=== PATIENT | female | born 1965 | race Caucasian/White ===

== ENCOUNTER → 2019-12-23 | Outpatient (CLI) | payer OTHER ==
--- NOTE | 2019-12-23 16:37 | RAD ---
Examination: MRI of the right ankle without contrast HISTORY: History of right ankle pain, fracture COMPARISON: None available Technique: Multiplanar, multisequence MR imaging of the right ankle was performed without contrast. FINDINGS: The attachment of the Achilles tendon to the calcaneus and plantar fascia to the inferior aspect of the calcaneus grossly appears intact. Comminuted fracture of the talus diffuse decreased signal in the mid and medial portion of the talus likely avascular necrosis. There is fracture of the anterior lateral aspect of the calcaneus superiorly.. There is diffuse increased intermediate T1 signal identified in the ankle joint with increased T2 signal likely neuropathic joint. There is diffuse trabecular edema identified in the calcaneus, talus, T1 bone likely stress reactive changes. The flexor tendons, anterior extensor compartment tendons, peroneal tendons attachment grossly appears unremarkable. Small amount of fluid identified in the pelvis along the tendon sheath lateral to the calcaneus. Mild amount of fluid identified in the tendon sheath of the flexor hallucis. Mild increased T2 signal/strain of the flexor hallucis longus muscle. Small subchondral cystic changes identified in the tibial plafond. Mild diffuse increased T2 signal identified in the muscle of the foot. IMPRESSION: 1. Comminuted fracture of the talus diffuse decreased signal in the mid and medial portion of the talus likely avascular necrosis. There is fracture of the anterior lateral aspect of the calcaneus superiorly. There is diffuse increased intermediate T1 signal identified in the ankle joint with increased T2 signal likely neuropathic joint. Age indeterminate fractures are not excluded. Plain film radiograph is recommended. 2. Diffuse trabecular edema identified in the calcaneus, talus, T1 bone likely stress reactive changes. 3. Small amount of fluid identified in the peroneus longus tendon sheath and flexor tendon sheath likely tenosynovitis. Mild increased T2 signal/strain of the flexor hallucis longus muscle could be mild muscle strain. Electronically signed by: Armando Lai MD (12/23/2019 4:34 PM) [id number]
== END | disposition home or self-care (01) ==
LOC: MRI 13:58
PROVIDERS: ATTEND Family Medicine
DX: R60.0 Localized edema (principal); M25.571 Pain in right ankle and joints of right foot; Z87.81 Personal history of (healed) traumatic fracture
CPT/HCPCS: 73721

== ENCOUNTER → 2020-06-05 | Outpatient (CLI) | payer OTHER ==
--- NOTE | 2020-06-05 14:54 | RAD ---
STUDY: CT of the right lower extremity without contrast INDICATION: Avascular necrosis of the talus COMPARISON: MRI right lower extremity without contrast 12/23/2019 TECHNIQUE: Axial CT imaging of the right ankle performed without contrast contrast. Coronal and sagit jesika reformats were obtained. One or more of the following individualized dose reduction techniques were utilized for this examinat ion: 1. Automated exposure control 2. Adjustment of the mA and/or kV according to patient size 3. Use of iterative reconstruction technique. FINDINGS: Bones: There is fragmentation and flattening of the talar dome and body resulting in a large gap and irregul arity of the articular surface, extending from anterior medially to posterior laterally. The fragment s are sclerotic in appearance with corticated margins, consistent with avascular necrosis. There are scattered cysts in the talus. There is abnormal alignment of the posterior middle facets of the subtalar joint and mild widening of the anterior facet. There is depression of the middle calcaneal articular facet anteriorly. There is a nonunited fracture of the anterior process of the calcaneus. The sinus Tarsi is disrupted. Tibiotalar joint space narrowing is greatest anterolaterally. There are subchondral cysts and small o steophytes in the tibial plafond. Small cysts and osteophytes at the tibiofibular articulation. Ther e is an old healed third metatarsal shaft fracture. Soft tissues: Large tibiotalar and subtalar joint effusions or synovitis. The flexor hallucis tendon courses betwee n several chronic ossicles and osteophytes at the posterior talus, which likely impinge on the tendon (image 49 series 2 and image 16 series 5). IMPRESSION: 1. Avascular necrosis of the talar dome with flattening and fragmentation of the bone resulting in d isruption and large gap in the articular surface. 2. Tibiotalar osteoarthrosis. 3. Disruption of the subtalar joint and sinus Tarsi. 4. Nonunited fracture of the anterior process of the calcaneus. 5. Probable bony impingement of the flexor hallucis longus tendon at the posterior talus. Electronically signed by: Stephanie Antunez MD (06/05/2020 2:52 PM) [id number]
== END ==
LOC: CT 08:10
PROVIDERS: ATTEND Family Medicine
DX: S92.021A Displaced fracture of anterior process of right calcaneus, initial encounter for closed fracture (principal); M19.09 Primary osteoarthritis, other specified site; X58.XXXA Exposure to other specified factors, initial encounter; Y93.89 Activity, other specified; Y92.89 Other specified places as the place of occurrence of the external cause; Y99.8 Other external cause status
CPT/HCPCS: 73700